=== PATIENT | female | born 1985 | race Caucasian/White ===

== ENCOUNTER 2022-10-20 14:48 | Emergency (ER) | payer BC ==
[~2022-10-20] VITALS: Ht 172.7 cm; Wt 100.0 kg
[2022-10-20 14:51] VITALS: BP 160/92
--- NOTE | 2022-10-20 15:48 | NUR ---
AT BEDSIDE WITH [employer] FOR PELVIC EXAM.
[2022-10-20] MEDS ORDERED: METR-159 PO (15:54)
[2022-10-20] MEDS ORDERED: ONDA4TAB12 PO (15:54)
[2022-10-20] MEDS ORDERED: metroNIDAZOLE 500mg tablet PO ONE (16:20)
== END 2022-10-20 16:37 | disposition home or self-care (01) ==
LOC: ER 14:49
DX: N76.0 Acute vaginitis (principal); B96.89 Other specified bacterial agents as the cause of diseases classified elsewhere; Z72.89 Other problems related to lifestyle; Z88.8 Allergy status to other drugs, medicaments and biological substances; Z88.5 Allergy status to narcotic agent
CPT/HCPCS: 87210; 99284